=== PATIENT | male | born 1950 | race Two or more races ===

== ENCOUNTER 2018-06-28 15:01 | Outpatient (CLI) | END 2018-06-28 15:02 | disposition home or self-care (01) | LOC: RHC-LAB 15:01 | PROVIDERS: ATTEND Nurse Practitioner Family | DX: I10 Essential (primary) hypertension (principal) | CPT/HCPCS: 36415; 80053; 80061; 85025 ==

== ENCOUNTER 2018-10-10 10:40 | Outpatient (CLI) ==
--- NOTE | 2018-10-10 14:44 | DI ---
EXAM: RIGHT ANKLE THREE VIEWS HISTORY: Ankle pain FINDINGS: Bones are demineralized. 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 Chronic, discontinuous spurring of the posterior calcaneus. Vascular calcifications are present. No fracture or joint effusion. Subcutaneous edema is suggested. IMPRESSION: No fracture or dislocation.
== END 2018-10-10 10:41 | disposition home or self-care (01) ==
LOC: RAD 10:40
PROVIDERS: ATTEND Family Medicine
DX: M25.571 Pain in right ankle and joints of right foot (principal)